=== PATIENT | male | born 1995 ===

== ENCOUNTER 2022-02-13 17:00 | Outpatient (CLI) | payer BC | END 2022-02-13 17:01 | disposition home or self-care (01) | LOC: SLEEPLAB 17:00 | PROVIDERS: ATTEND Family Medicine | DX: F51.9 Sleep disorder not due to a substance or known physiological condition, unspecified (principal); R53.83 Other fatigue; R51.9 Headache, unspecified; F41.8 Other specified anxiety disorders; R06.83 Snoring; G47.00 Insomnia, unspecified | CPT/HCPCS: 95806 ==

== ENCOUNTER 2022-04-08 19:30 | Outpatient (CLI) | payer BC | END 2022-04-08 19:31 | disposition home or self-care (01) | LOC: SLEEPLAB 19:30 | PROVIDERS: ATTEND Family Medicine | DX: F51.9 Sleep disorder not due to a substance or known physiological condition, unspecified (principal); G47.33 Obstructive sleep apnea (adult) (pediatric); R53.83 Other fatigue; R51.9 Headache, unspecified; F32.9 Major depressive disorder, single episode, unspecified; F41.9 Anxiety disorder, unspecified; R06.83 Snoring; G47.00 Insomnia, unspecified; G47.10 Hypersomnia, unspecified; F42.9 Obsessive-compulsive disorder, unspecified | CPT/HCPCS: 95810 ==